=== PATIENT | male | born 1935 | race Caucasian/White ===

== ENCOUNTER 2023-08-05 08:01 | Inpatient (IN) | payer MEDICARE ==
[2023-08-05 08:22] LABS: #Monocytes 0.8 10x3/uL (0.0-1.1); #Neutrophils 14.4 10x3/uL (1.5-8.4); %Basophils 0.1 % (0.0-2.0); %Lymphocytes 6.9 % (18.0-47.0); %Monocytes 4.6 % (0.0-10.0); Hematocrit 37.1 % (38.8-50.0); Hemoglobin 12.7 g/dL (13.5-17.5); Mean Corpuscular HGB CONC 34.2 g/dL (32.0-36.0); Mean Corpuscular Hemoglobin 30.2 pg (27.0-33.0); Mean Corpuscular Volume 88.1 fl (81.2-95.1); Mean Platelet Volume 10.6 fl (7.4-10.4); Platelet Count 249 10x3/uL (150-450); RBC Distribution Width 13.2 % (11.5-14.5); Red Blood Cell (RBC) Count 4.21 10x6/uL (4.32-5.72); White Blood Cell (WBC) Count 16.3 10x3/uL (3.5-10.5)
[2023-08-05 08:32] LABS: Prothrombin Time 10.4 sec (9.5-12.1)
[2023-08-05 08:41] LABS: ALT (SGPT) 27 U/L (8-55); AST (SGOT) 42 U/L (5-34); Albumin 4.6 g/dL (3.4-4.8); Alkaline Phosphatase 96 U/L (40-110); Anion Gap 17 mmol/L (10-20); BUN (Urea Nitrogen) 32 mg/dL (8.4-25.7); Bilirubin, Total 0.7 mg/dL (0.2-1.2); Calc. Creatinine Clearance 0 mL/min (70-130); Calcium 9.8 mg/dL (7.8-10.44); Carbon Dioxide 25 mmol/L (23-31); Chloride 100 mmol/L (98-107); Estimated GFR 86; Globulin 3.1 g/dL (2.4-3.5); Glucose 139 mg/dL (83-110); Lipase 5 U/L (8-78); Magnesium 1.9 mg/dL (1.6-2.6); Potassium 3.5 mmol/L (3.5-5.1); Protein, Total 7.7 g/dL (5.8-8.1); Sodium 138 mmol/L (136-145)
[2023-08-05 08:46] LABS: Critical Call Chem Troponin I RES.FB2 @ 0846; Troponin I 0.302 ng/mL (< 0.028)
[2023-08-05] MEDS ORDERED: Morphine 4 MG/ML VIAL ONE (09:02)
[2023-08-05] MEDS ORDERED: Ondansetron PF 4 MG/2 ML Vial ONE (09:02)
[2023-08-05 09:34] LABS: Bilirubin Neg (Negative); Blood, Urine 250 (Negative); Clarity Cloudy (Clear); Glucose, Urine (Dipstick) Normal (Negative); Ketone, Urine 5 mg/dL (Negative); Leukocyte 25 (Negative); Nitrite Negative (Negative); Protein, Urine (Dipstick) 100 mg/dl (Neg-Trace); Specific Gravity, Urine 1.015 (1.005-1.030); Urobilinogen Normal mg/dL (Less than 2); pH, Urine 6.5 (5.0-9.0)
[2023-08-05 09:43] LABS: Bacteria/HPF 4+ HPF (None Seen); CAUTI Indications for Culture Dysuria,urgency,freq
[2023-08-05 09:44] LABS: Urine Culture Reflex No No
[2023-08-05] MEDS ORDERED: cefTRIAXone (ROCEPHIN) 1 GM VIAL ONE (10:11)
[2023-08-05] MEDS ORDERED: Acetaminophen 325 MG TAB PO PRN (10:21)
[2023-08-05 10:26] LABS: SARS-CoV-2 NAA Rapid Test Not Detected (NotDetected)
[2023-08-05 11:34] LABS: Lactic Acid 1.1 mmol/L (0.5-2.2)
[2023-08-05 11:54] LABS: Critical Call Chem Troponin I ERS.CP1 @1153; Troponin I 0.351 ng/mL (< 0.028)
[2023-08-05] MEDS: Enoxaparin 40 MG (0.4 mL) SYRINGE SC SCH (15:36)
[2023-08-05] MEDS: Sodium Chloride 0.9% 1,000 ML IV SCH (15:38)
[2023-08-05 16:12] LABS: Critical Call Chem Troponin I NUR.WB AT 1608; Troponin I 0.359 ng/mL (< 0.028)
[2023-08-05] MEDS ORDERED: Artificial Tear Sol 15 ML BOT EA EYE PRN (18:30)
[2023-08-05] MEDS: Ezetimibe 10 MG TAB PO SCH (21:22)
[2023-08-06 03:44] LABS: #Monocytes 1.4 10x3/uL (0.0-1.1); #Neutrophils 19.8 10x3/uL (1.5-8.4); %Basophils 0.1 % (0.0-2.0); %Lymphocytes 6.6 % (18.0-47.0); %Neutrophils 86.3 % (40.0-75.0); Hemoglobin 11.3 g/dL (13.5-17.5); Mean Corpuscular HGB CONC 34.2 g/dL (32.0-36.0); Mean Corpuscular Hemoglobin 30.8 pg (27.0-33.0); Mean Corpuscular Volume 89.9 fl (81.2-95.1); Mean Platelet Volume 10.8 fl (7.4-10.4); Platelet Count 219 10x3/uL (150-450); RBC Distribution Width 13.4 % (11.5-14.5); Red Blood Cell (RBC) Count 3.67 10x6/uL (4.32-5.72)
[2023-08-06 04:17] LABS: Anion Gap 11 mmol/L (10-20); BUN (Urea Nitrogen) 28 mg/dL (8.4-25.7); Calc. Creatinine Clearance 0 mL/min (70-130); Calcium 8.5 mg/dL (7.8-10.44); Carbon Dioxide 27 mmol/L (23-31); Chloride 105 mmol/L (98-107); Estimated GFR 88; Glucose 120 mg/dL (83-110); Potassium 3.3 mmol/L (3.5-5.1); Sodium 140 mmol/L (136-145)
[2023-08-06] MEDS: CO Q-10 CAPSULE 50 MG PO SCH (09:14)
[2023-08-06] MEDS: Aspirin 81 mg Enteric Coated Tablet PO SCH (09:15)
[2023-08-06] MEDS: Lisinopril 10 MG TAB PO SCH (09:15)
[2023-08-06] MEDS: Hydrochlorothiazide 25 MG TAB PO SCH (09:15)
[2023-08-06] MEDS: Amlodipine 5 MG TAB PO SCH (09:15)
[2023-08-06] MEDS: Potassium Chloride 20 MEQ TAB PO SCH (09:21)
[2023-08-06] MEDS: cefTRIAXone\\ROCEPHIN 1 GM in Sodium Chloride 0.9% 100 ML IVPB SCH (10:19)
[2023-08-06 11:17] VITALS: BMI 26.7
[2023-08-06] MEDS ORDERED: Vancomycin 1 GM in Premix 1 BAG IVPB SCH (15:34)
[2023-08-06] MEDS: VANCOMYCIN 1.25 GM/250 ML BAG 1.25 GM in Premix 1 BAG IVPB SCH (16:57)
[2023-08-07 06:18] LABS: Anion Gap 12 mmol/L (10-20); BUN (Urea Nitrogen) 25 mg/dL (8.4-25.7); Calc. Creatinine Clearance 97 mL/min (70-130); Calcium 8.6 mg/dL (7.8-10.44); Carbon Dioxide 27 mmol/L (23-31); Chloride 101 mmol/L (98-107); Estimated GFR 91; Glucose 131 mg/dL (83-110); Magnesium 1.7 mg/dL (1.6-2.6); Potassium 2.8 mmol/L (3.5-5.1); Sodium 137 mmol/L (136-145)
[2023-08-07 06:20] LABS: #Monocytes 1.1 10x3/uL (0.0-1.1); #Neutrophils 13.4 10x3/uL (1.5-8.4); %Basophils 0.1 % (0.0-2.0); %Eosinophils 0.1 % (0.0-6.0); %Lymphocytes 2.7 % (18.0-47.0); %Monocytes 7.4 % (0.0-10.0); Hematocrit 34.8 % (38.8-50.0); Hemoglobin 11.6 g/dL (13.5-17.5); Mean Corpuscular HGB CONC 33.3 g/dL (32.0-36.0); Mean Corpuscular Hemoglobin 29.9 pg (27.0-33.0); Mean Corpuscular Volume 89.7 fl (81.2-95.1); Platelet Count 177 10x3/uL (150-450); RBC Distribution Width 13.3 % (11.5-14.5); Red Blood Cell (RBC) Count 3.88 10x6/uL (4.32-5.72)
[2023-08-07] MEDS: Potassium Chloride 20 MEQ TAB PO SCH (08:34)
[2023-08-07] MEDS ORDERED: Vancomycin 1 GM in Sodium Chloride 0.9% 250 ML 250 ML IVPB SCH (16:00)
[2023-08-07 16:50] LABS: Magnesium 1.9 mg/dL (1.6-2.6); Potassium 3.2 mmol/L (3.5-5.1)
[2023-08-07] MEDS: Vancomycin 1 GM in Sodium Chloride 0.9% 250 ML 250 ML IVPB SCH (17:30)
[2023-08-07] MEDS: Benzocaine/Menthol 1 LOZ LOZ PO PRN (20:26)
[2023-08-07] MEDS ORDERED: HYDROmorphone 0.5 MG/0.5 ML SYRINGE SLOW IVP SCH (20:30)
[2023-08-07] MEDS ORDERED: Vancomycin 1 GM in Premix 1 BAG IVPB SCH (21:00)
[2023-08-08 05:31] LABS: #Eosinphils 0.2 10x3/uL (0.0-0.5); #Monocytes 0.8 10x3/uL (0.0-1.1); #Neutrophils 7.9 10x3/uL (1.5-8.4); %Basophils 0.4 % (0.0-2.0); %Eosinophils 1.8 % (0.0-6.0); %Lymphocytes 11.2 % (18.0-47.0); %Neutrophils 78.3 % (40.0-75.0); Hemoglobin 11.2 g/dL (13.5-17.5); Mean Corpuscular HGB CONC 32.9 g/dL (32.0-36.0); Mean Corpuscular Hemoglobin 29.2 pg (27.0-33.0); Mean Corpuscular Volume 88.5 fl (81.2-95.1); Mean Platelet Volume 10.9 fl (7.4-10.4); Platelet Count 174 10x3/uL (150-450); RBC Distribution Width 13.2 % (11.5-14.5); Red Blood Cell (RBC) Count 3.84 10x6/uL (4.32-5.72); White Blood Cell (WBC) Count 10.1 10x3/uL (3.5-10.5)
[2023-08-08 05:39] LABS: Anion Gap 10 mmol/L (10-20); BUN (Urea Nitrogen) 18 mg/dL (8.4-25.7); Calc. Creatinine Clearance 107 mL/min (70-130); Calcium 8.5 mg/dL (7.8-10.44); Carbon Dioxide 31 mmol/L (23-31); Chloride 100 mmol/L (98-107); Estimated GFR 93; Glucose 146 mg/dL (83-110); Magnesium 1.8 mg/dL (1.6-2.6); Potassium 2.7 mmol/L (3.5-5.1); Sodium 138 mmol/L (136-145)
[2023-08-08] MEDS: Bicalutamide 50 MG TAB PO SCH (09:20)
[2023-08-08] MEDS: Potassium Chloride 20 MEQ TAB PO SCH ×3 (09:21→18:03)
[2023-08-08] MEDS: Cyanocobalamin (Vitamin B-12) 1,000 MCG TAB PO SCH (09:22)
[2023-08-08] MEDS ORDERED: Potassium Chloride 40 MEQ in Premix 1 BAG IVPB SCH (13:30)
[2023-08-08] MEDS: Potassium Chloride 20 MEQ in Premix 1 BAG IVPB SCH (13:36)
[2023-08-08] MEDS: LevoFLOXacin 750 MG TAB PO SCH (13:44)
[2023-08-08] MEDS: Atorvastatin Calcium 40 MG TAB PO SCH (21:31)
[2023-08-09 04:39] LABS: Magnesium 1.9 mg/dL (1.6-2.6)
[2023-08-09] MEDS: LevoFLOXacin 750 MG TAB PO SCH (05:45)
[2023-08-09] MEDS: Magnesium 2 GM/50 ML(in water) 2 GM in Premix 1 BAG IVPB SCH (10:06)
[2023-08-09 10:50] LABS: Anion Gap 10 mmol/L (10-20); BUN (Urea Nitrogen) 18 mg/dL (8.4-25.7); Calc. Creatinine Clearance 89 mL/min (70-130); Calcium 8.8 mg/dL (7.8-10.44); Carbon Dioxide 31 mmol/L (23-31); Chloride 99 mmol/L (98-107); Estimated GFR 88; Glucose 149 mg/dL (83-110); Potassium 4.2 mmol/L (3.5-5.1); Sodium 136 mmol/L (136-145)
[2023-08-09] MEDS ORDERED: Ipratropium/Albuterol 3 ML NEB NEB PRN (17:07)
[2023-08-09] MEDS: Ipratropium/Albuterol 3 ML NEB NEB SCH (18:42)
[2023-08-09] MEDS ORDERED: Ipratropium/Albuterol 3 ML NEB NEB SCH (19:00)
[2023-08-09] MEDS: Mometasone/Formoterol 60 PUFF AER INH SCH (19:03)
[2023-08-09] MEDS: Tamsulosin HCl 0.4 MG CAP PO SCH (21:32)
[2023-08-10 06:31] LABS: Anion Gap 11 mmol/L (10-20); BUN (Urea Nitrogen) 21 mg/dL (8.4-25.7); Calc. Creatinine Clearance 96 mL/min (70-130); Calcium 8.9 mg/dL (7.8-10.44); Carbon Dioxide 31 mmol/L (23-31); Chloride 99 mmol/L (98-107); Estimated GFR 90; Glucose 112 mg/dL (83-110); Potassium 3.5 mmol/L (3.5-5.1); Sodium 137 mmol/L (136-145)
[2023-08-10] MEDS: Finasteride 5 MG TAB PO SCH (09:07)
[2023-08-10 09:32] VITALS: TEMP 97.7
[2023-08-10 11:35] VITALS: BP 108/70
[2023-08-12] MEDS ORDERED: Ergocalciferol 1.25 MG(50,000 UNITS) CAP PO SCH (09:00)
== END 2023-08-10 12:03 | DRG 871 ==
LOC: CSHERS 08:01 → CSHERHOLD 10:18 → CSHTELE 12:38
PROVIDERS: ADMIT Internal Medicine; ATTEND Family Medicine
DX: A41.89 Other specified sepsis (principal); G93.41 Metabolic encephalopathy; I21.A1 Myocardial infarction type 2; J96.01 Acute respiratory failure with hypoxia; N30.00 Acute cystitis without hematuria; J98.11 Atelectasis; R65.20 Severe sepsis without septic shock; I10 Essential (primary) hypertension; I25.10 Atherosclerotic heart disease of native coronary artery without angina pectoris; R33.9 Retention of urine, unspecified; J44.9 Chronic obstructive pulmonary disease, unspecified; G47.33 Obstructive sleep apnea (adult) (pediatric); E05.90 Thyrotoxicosis, unspecified without thyrotoxic crisis or storm; E87.6 Hypokalemia; Z85.46 Personal history of malignant neoplasm of prostate; Z90.79 Acquired absence of other genital organ(s); Z79.899 Other long term (current) drug therapy; Z79.82 Long term (current) use of aspirin; Z88.0 Allergy status to penicillin; Z88.1 Allergy status to other antibiotic agents; Z95.1 Presence of aortocoronary bypass graft; Z98.890 Other specified postprocedural states; Z11.52 Encounter for screening for COVID-19
CPT/HCPCS: 36415; 36416; 70450; 71045; 72125; 74176; 80048; 80053; 81001; 82607; 83605; 83690; 83735; 83880; 84439; 84443; 84481; 84484; 85025; 85610; 85730; 87040; 87077; 87086; 87186; 93005; 93010; 93306; 94640; 94664; 94760; 96361; 96374; 96375; J0696; J1650; J2270; J2405; J3370; J3475; J3480; J3490; J7050; J7620